=== PATIENT | male | born 1995 | race Caucasian/White ===

== ENCOUNTER 2024-03-07 10:10 | Emergency (ER) | payer OTHER, BC ==
[~2024-03-07] VITALS: Ht 170.2 cm; Wt 117.9 kg
[2024-03-07] VITALS (7 sets, daily range): BP systolic 152–164; BP diastolic 87–111
[~2024-03-07 10:10] MED LIST: NO CURRENT MEDS
[2024-03-07] MEDS ORDERED: SODIUM CHLORIDE 0.9% 1,000 ML IV ONE (10:35)
[2024-03-07] MEDS ORDERED: Diph, Acellular Pertussis, Tet 0.5 ML/VIAL (Tdap) SDV IM ONE (10:35)
[2024-03-07] MEDS ORDERED: MORPHINE SULFATE 4 MG/ML VIAL IV ONE ×2 (10:35→15:00)
[2024-03-07 10:45] LABS: ALBUMIN 4.5 g/dL (3.2-5.0); BASO% 0.4 % (0-3); BILIRUBIN, TOTAL 0.5 mg/dL (0.2-1.3); CREATININE 0.9 mg/dL (0.7-1.3); EOS% 3.3 % (0-8); IMMATURE GRANULOCYTES 0.9 % (0.0-5.0); LYMPH% 27.3 % (15-41); MEAN CORPUSCULAR HGB 31.6 pG CALC (26.0-32.0); MEAN CORPUSCULAR HGB CONC 34.1 g/dL CAL (32.0-36.0); MONO% 4.7 % (2-13); NEUT# 5.15 thou/uL (1.82-7.42); NEUT% 63.4 % (42-76); RED BLOOD COUNT 4.68 mill/uL (4.70-6.10); RED CELL DISTRI WIDTH 11.9 % (11.5-15.5)
[2024-03-07 10:50] LABS: HEMATOCRIT 43.4 % (39.0-50.0); HEMOGLOBIN 14.8 g/dl (14.0-18.0); MEAN CELL VOLUME 92.7 fL CALC (80.0-100.0)
[2024-03-07 10:51] LABS: PROTHROMBIN TIME 9.9 SECONDS (9.0-12.5)
[2024-03-07] MEDS ORDERED: LIDOCAINE VISCOUS 2% 15 ML UDC PO ONE (15:10)
[2024-03-07] MEDS ORDERED: MOTRIN800 MG PO (15:48)
[2024-03-07] MEDS ORDERED: TRAMADOL HYDROC50 M1 PO (15:48)
== END 2024-03-07 16:15 | disposition home or self-care (01) | DRG 156 ==
LOC: ED 10:10
PROVIDERS: Emergency Medicine
PROC: 0HQ1XZZ Repair Face Skin, External Approach (ICD-10-PCS; principal; 2024-03-07)
DX: S01.21XA Laceration without foreign body of nose, initial encounter (principal); S20.211A Contusion of right front wall of thorax, initial encounter; S40.011A Contusion of right shoulder, initial encounter; S00.93XA Contusion of unspecified part of head, initial encounter; S20.224A Contusion of middle back wall of thorax, initial encounter; V59.40XA Driver of pick-up truck or van injured in collision with unspecified motor vehicles in traffic accident, initial encounter
CPT/HCPCS: Q9967

== ENCOUNTER 2024-03-17 12:00 | Emergency (ER) | payer OTHER, BC ==
[~2024-03-17] VITALS: Ht 170.2 cm; Wt 113.0 kg
[~2024-03-17 12:00] MED LIST changes: +MOTRIN800 MG PO; +TRAMADOL HYDROC50 M1 PO
[2024-03-17 12:36] VITALS: BP 140/92
== END 2024-03-17 12:45 | disposition home or self-care (01) | DRG 950 ==
LOC: ED 12:00
DX: S01.21XD Laceration without foreign body of nose, subsequent encounter (principal); X58.XXXD Exposure to other specified factors, subsequent encounter